=== PATIENT | male | born 1995 | race Caucasian/White ===

== ENCOUNTER 2016-08-17 19:08 | Emergency (ER) | payer OTHER ==
[~2016-08-17 19:08] MED LIST: DEPAKOTE PO; GEODON80 MG PO
[2016-08-17] MEDS ORDERED: CIPROFLOXACIN500 M1 PO (19:29)
[2016-08-17] MEDS ORDERED: ZOFRAN ODT4 M1 (19:29)
[2016-08-17] MEDS ORDERED: TRAMADOL HCL50 M1 PO (19:30)
[2016-08-17] MEDS ORDERED: FLAGYL PO (19:30)
== END 2016-08-17 19:48 | disposition home or self-care (01) ==
LOC: SED 19:08
DX: K52.9 Noninfective gastroenteritis and colitis, unspecified (principal); F31.9 Bipolar disorder, unspecified; F17.200 Nicotine dependence, unspecified, uncomplicated; Z79.899 Other long term (current) drug therapy
CPT/HCPCS: 36415; 74176; 80048; 80076; 81003; 82150; 83690; 85025; 96361; 96372; 96374; 99283; 99284; J0500; J2405

== ENCOUNTER 2016-10-07 13:09 | Emergency (ER) | payer OTHER ==
[~2016-10-07] VITALS: Ht 182.9 cm; Wt 95.2 kg
--- NOTE | ~2016-10-07 | CT2 ---
[facility] A Service of [facility] RADIOLOGY TEXT RESULTS PATIENT: PRO LATHAM LOCATION: [facility]FT[facility] : 95 UNIT #: [id number] AGE: [address]: Ondina Batista SEX: M ORDER DR: [id number] [facility] [address] [place], [place] [address] [id number] E MR#: [id number] Acc #: [id number] NAME: PRO LATHAM : 1995 SEX: M STUDY DATE/TIME: 10/07/2016 16:58 UNIT: CFTX ROOM: STUDY DESCRIPTION: CT Abd and Pelv W Cont Attending Physician: Ondina Batista Pa-C Ordering Physician: Ed Lazaro Swift M.D. Primary Care Physician: [facility] MEDICAL IMAGING REPORT This report is preliminary unless electronic signature is present EXAM CT abdomen and pelvis with IV contrast HISTORY Mid-abdomen pain today. Nausea and vomiting. FINDINGS CT abdomen and pelvis was performed with IV contrast. This CT exam was performed with one or more of the following radiation dose reduction techniques: Automatic exposure control, adjustment of mA and/or kV according to patient size, and iterative reconstruction. CT ABDOMEN: The liver, gallbladder, kidneys, and adrenal glands are unremarkable. Small lower pole left renal stone noted on CT 08/17/2016 could be obscured by excreted contrast on today's exam. 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 Normal caliber abdominal aorta. No bowel dilatation. No adenopathy. Mild splenomegaly measuring [address] PELVIS: No pelvic mass or free fluid. No abscess. No bowel dilatation. IMPRESSION 1. No acute findings in the abdomen or pelvis. 2. No urinary obstruction or bowel obstruction. 3. Mild splenic enlargement measuring 15 cm in length. Dictated by... Narciso Smith M.D. THIS IS AN ELECTRONICALLY VERIFIED REPORT Narciso Smith M.D. at 10/08/2016 2:36 PM [facility] A Service of [facility] RADIOLOGY TEXT RESULTS PATIENT: PRO LATHAM LOCATION: [facility] : 95 UNIT #: [id number] AGE: [address]: Ondina Batista SEX: M ORDER DR: Gage TD: 10/08/2016 08:18 JOB #: [id number] MEDICAL IMAGING REPORT Page 1 of 1 COPY
[~2016-10-07 13:09] MED LIST changes: +CIPROFLOXACIN500 M1 PO; +FLAGYL PO; +TRAMADOL HCL50 M1 PO; +ZOFRAN ODT4 M1
[2016-10-07 14:53] LABS: BASOPHIL% 0.5 % (0-2.5); EOSINOPHIL% 0.2 % (0.0-7.0); HEMATOCRIT 43.3 % (38.0-50.0); HEMOGLOBIN 14.3 gm/dL (13.0-16.0); LYMPHOCYTE# 0.6 X10e3 (1.0-3.5); LYMPHOCYTE% 11.7 % (17.0-45.0); MEAN CELL VOLUME 84.3 FL (83-96); MEAN CORPUSCULAR HEMOGLOBIN 27.9 PG (28-34); MEAN CORPUSCULAR HGB CONC 33.1 g/dL (30-36); MEAN PLATELET VOLUME 9.5 FL (6.5-11.5); MONOCYTE# 0.1 X10e3 (0-1.0); MONOCYTE% 2.3 % (3.0-12.0); NEUTROPHIL# 4.1 X10e3 (1.5-7.1); NEUTROPHIL% 85.3 % (40-75); PLATELET COUNT 123 X10e3 (140-420); RED BLOOD COUNT 5.14 X10e (3.90-5.60); RED CELL DISTRIBUTION WIDTH 14.4 % (11.0-15.5); WHITE BLOOD COUNT 4.8 X10e3 (4.0-10.5)
[2016-10-07 14:54] LABS: DIFF IND NO
[2016-10-07 15:51] LABS: ALBUMIN SERUM 4.4 g/dL (3.5-5.0); BILIRUBIN, DIRECT 0.2 mg/dL (0.0-0.2); BILIRUBIN,INDIRECT 0.6 mg/dL (0.0-0.9); BILIRUBIN,TOTAL 0.8 mg/dL (0.2-2.0); CALCIUM SERUM 8.9 mg/dL (8.4-10.2); CREATININE SERUM 0.8 mg/dL (0.6-1.4); GLOM FILT RATE Estimated 127.7 mL/min (>60); POTASSIUM 3.5 mmol/L (3.5-5.1); PROTEIN TOTAL SERUM 7.6 g/dL (6.0-8.3)
== END 2016-10-07 17:54 | disposition home or self-care (01) ==
LOC: CED 13:09 → CFTX 13:09
PROVIDERS: Physician Assistant
DX: K52.9 Noninfective gastroenteritis and colitis, unspecified (principal); J45.909 Unspecified asthma, uncomplicated; F31.9 Bipolar disorder, unspecified; F17.200 Nicotine dependence, unspecified, uncomplicated; Z79.899 Other long term (current) drug therapy
CPT/HCPCS: 36415; 74177; 80048; 80076; 83690; 85025; 96361; 96374; 96375; 99284; J2270; J2405; Q9967

== ENCOUNTER 2016-10-07 20:56 | Emergency (ER) | payer OTHER ==
[~2016-10-07] VITALS: Ht 182.9 cm; Wt 81.6 kg
--- NOTE | ~2016-10-07 | EKG ---
PATIENT: PRO LATHAM UNIT #: [id number] Ventricular Rate: 46 BPM Atrial Rate: 46 BPM P-R Interval: 160 ms QRS Duration: 96 ms Q-T Interval: 448 ms QTC Calculation(Bezet): 392 ms P [place]: 20 degrees Calculated R [place]: 54 degrees Calculated T [place]: 46 degrees Diagnosis Line: Sinus bradycardia with Premature atrial complexes Diagnosis Line: Septal infarct , age undetermined Diagnosis Line: Abnormal ECG Diagnosis Line: When compared with ECG of 09-MAY-2012 14:48, Diagnosis Line: Premature atrial complexes are now Present Diagnosis Line: Vent. rate has decreased BY 38 BPM Diagnosis Line: Septal infarct is now Present Diagnosis Line: Confirmed by HECTOR TURNER MD ([id number]) on Diagnosis Line: 10/08/2016 2:02:16 PM INTERPRETING MD: JOHNNY BHAT
== END 2016-10-08 00:30 | disposition left against medical advice (07) ==
LOC: CED 20:56
DX: Z53.21 Procedure and treatment not carried out due to patient leaving prior to being seen by health care provider (principal)
CPT/HCPCS: 93005

== ENCOUNTER 2016-10-07 21:46 | Emergency (ER) | payer OTHER ==
[~2016-10-07] VITALS: Ht 182.9 cm; Wt 81.6 kg
== END 2016-10-07 23:45 | disposition home or self-care (01) ==
LOC: SED 21:46
DX: R10.9 Unspecified abdominal pain (principal); R11.2 Nausea with vomiting, unspecified
CPT/HCPCS: 36415; 96361; 96374; 96375; 99284; J0780; J1200

== ENCOUNTER 2016-10-10 10:37 | Emergency (ER) | payer OTHER ==
[2016-10-10 11:38] LABS: BASOPHIL# 0.1 X10e3 (0-0.3); BASOPHIL% 1.3 % (0-2.5); HEMATOCRIT 41.1 % (38.0-50.0); HEMOGLOBIN 13.9 gm/dL (13.0-16.0); LYMPHOCYTE# 0.8 X10e3 (1.0-3.5); LYMPHOCYTE% 17.6 % (17.0-45.0); MEAN CELL VOLUME 83.9 FL (83-96); MEAN CORPUSCULAR HEMOGLOBIN 28.4 PG (28-34); MEAN CORPUSCULAR HGB CONC 33.9 g/dL (30-36); MEAN PLATELET VOLUME 9.9 FL (6.5-11.5); MONOCYTE# 0.3 X10e3 (0-1.0); MONOCYTE% 5.5 % (3.0-12.0); NEUTROPHIL# 3.5 X10e3 (1.5-7.1); NEUTROPHIL% 74.6 % (40-75); RED CELL DISTRIBUTION WIDTH 14.3 % (11.0-15.5); WHITE BLOOD COUNT 4.7 X10e3 (4.0-10.5)
[2016-10-10 11:47] LABS: URINE SOURCE CLEAN CATCH
[2016-10-10 11:47] LABS: ALBUMIN SERUM 4.2 g/dL (3.5-5.0); BILIRUBIN, DIRECT 0.1 mg/dL (0.0-0.2); BILIRUBIN,INDIRECT 0.4 mg/dL (0.0-0.9); BILIRUBIN,TOTAL 0.5 mg/dL (0.2-2.0); BUN/CREATININE RATIO 21.66; CALCIUM SERUM 8.7 mg/dL (8.4-10.2); CREATININE SERUM 0.6 mg/dL (0.6-1.4); GLOM FILT RATE Estimated 143.8 mL/min (>60); POTASSIUM 3.7 mmol/L (3.5-5.1); PROTEIN TOTAL SERUM 7.2 g/dL (6.0-8.3)
[2016-10-10 11:50] LABS: URINE APPEARANCE CLEAR; URINE BILIRUBIN NEG (NEG); URINE BLOOD NEG (NEG); URINE COLOR YELLOW; URINE GLUCOSE NEG (NORM); URINE KETONE NEG (NEG); URINE LEUKOCYTE ESTERASE NEG (NEG); URINE NITRATE NEG (NEG); URINE PROTEIN NEG (NEG); URINE SPECIFIC GRAVITY 1.025 (1.003-1.035); URINE UROBILINOGEN 0.2 MG/DL (NORM)
[2016-10-10 11:56] LABS: MICRO INDICATED? NO
[2016-10-10 11:59] LABS: DIFF IND YES; PLATELET COUNT 98 X10e3 (140-420)
[2016-10-10 12:03] LABS: PLATELET ESTIMATE DECREASED (NORMAL); RBC NORMAL YES
== END 2016-10-10 12:35 | disposition home or self-care (01) ==
LOC: SED 10:37
PROVIDERS: Physician Assistant
DX: R10.13 Epigastric pain (principal); R11.2 Nausea with vomiting, unspecified; F31.9 Bipolar disorder, unspecified; J45.909 Unspecified asthma, uncomplicated
CPT/HCPCS: 36415; 80048; 80076; 81003; 82150; 83690; 85025; 96361; 96374; 96375; 99284; C9113; J1200; J2765

== ENCOUNTER 2016-11-22 22:34 | Emergency (ER) | payer OTHER ==
[~2016-11-22] VITALS: Ht 182.9 cm; Wt 90.7 kg
--- NOTE | ~2016-11-22 | CR141 ---
[facility] A Service of [facility] RADIOLOGY TEXT RESULTS PATIENT: PRO LATHAM LOCATION: SED : 95 UNIT #: [id number] AGE: [address]: Hola Jovel SEX: M ORDER DR: [id number] [place] [id number] E MR#: [id number] Acc #: [id number] NAME: PRO LATHAM : 1995 SEX: M STUDY DATE/TIME: 11/22/2016 22:57 UNIT: SED ROOM: STUDY DESCRIPTION: CR Hand Min 3 Views Lt Attending Physician: Hola Jovel P.A.-C. Ordering Physician: Hola Jovel P.A.-C. Primary Care Physician: [facility] MEDICAL IMAGING REPORT This report is preliminary unless electronic signature is present. EXAM Left hand, 11/22/2016. HISTORY 21-year-old male in the ED with glass laceration to the left hand. Pain. Injury earlier tonight just prior to arrival. TECHNIQUE Three-view left hand series. FINDINGS No fracture or other acute osseous abnormality. The patient reportedly has a glass laceration to the hand, the exact location of the laceration is not reported. The images show a small, faint, ovoid foreign body superimposed over the palmar portion of the hand at the level of the second metacarpal neck. Correlate for injury in this location. This may represent a tiny glass fragment it could represent a small skin flap associated with soft tissue laceration. Correlate clinically. IMPRESSION 1. No acute osseous abnormality. 2. Possible tiny soft tissue foreign body as noted above. Dictated by... Ulises Smith M.D. THIS IS AN ELECTRONICALLY VERIFIED REPORT Ulises Smith M.D. at 11/24/2016 6:04 AM KIRILL/kayode [facility] A Service of [facility] RADIOLOGY TEXT RESULTS PATIENT: PRO LATHAM LOCATION: SED : 95 UNIT #: [id number] AGE: [address]: Hola Jovel SEX: M ORDER DR: TD: 11/23/2016 22:03 JOB #: [id number] MEDICAL IMAGING REPORT Page 1 of 1
== END 2016-11-23 00:10 | disposition home or self-care (01) ==
LOC: SED 22:34
DX: S61.412A Laceration without foreign body of left hand, initial encounter (principal); F17.210 Nicotine dependence, cigarettes, uncomplicated; W26.9XXA Contact with unspecified sharp object(s), initial encounter; Y92.009 Unspecified place in unspecified non-institutional (private) residence as the place of occurrence of the external cause
CPT/HCPCS: 12001; 73130; 96372; 99283; J0696